=== PATIENT | male | born 1995 | race Caucasian/White ===

== ENCOUNTER 2017-04-27 18:33 | Emergency (ER) | payer SELFPAY ==
[~2017-04-27] VITALS: Ht 165.1 cm; Wt 70.0 kg
[2017-04-27 18:40] VITALS: BP 156/79
--- NOTE | 2017-04-27 19:30 | NUR ---
PT. AMBULATE TO ER BED 4
[2017-04-27] MEDS ORDERED: KETOROLAC 30 MG/ML VIAL IM ONE (19:40)
--- NOTE | 2017-04-27 19:45 | NUR ---
Patient being evaluated by DR. MARS at bedside.
--- NOTE | 2017-04-27 19:45 | NUR ---
21 PATIENT PRESENTS TO ED WITH RT. GROIN PAIN X 2 DAYS. PT STATES PAIN FOR 3 DAYS. DENIES N/V/D; SKIN IS PINK/WARM/DRY; AAOX4 WITH EVEN AND STEADY GAIT; LUNGS CLEAR BL; HR EVEN AND REGULAR; PT DENIES ANY FEVER, CP, SOB, OR COUGH AT THIS TIME; PATIENT STATES PAIN OF 7/10 AT THIS TIME; VSS; PATIENT POSITIONED FOR COMFORT; HOB ELEVATED; BEDRAILS UP X2; BED DOWN. ER MD MADE AWARE OF PT STATUS.
--- NOTE | 2017-04-27 20:25 | NUR ---
Patient discharged with v/s stable. Written and verbal after care instructions given and explained. Patient alert, oriented and verbalized understanding of instructions. Ambulatory with steady gait. All questions addressed prior to discharge. ID band removed. Patient advised to follow up with PMD. Rx of KEFLEX 500 MG, NAPROSYN 500 MG given. Patient educated on indication of medication including possible reaction and side effects. Opportunity to ask questions provided and answered.
[2017-04-27 21:25] VITALS: BP 123/63
--- NOTE | 2017-04-27 21:26 | NUR ---
Note heribertoone in EDM - 04/27/17 at 2127 by MED Patient discharged with v/s stable. Written and verbal after care instructions given and explained. Patient alert, oriented and verbalized understanding of instructions. Ambulatory with steady gait. All questions addressed prior to discharge. ID band removed. Patient advised to follow up with PMD. Rx of KEFLEX 500 MG, NAPROSYN 500 MG given. Patient educated on indication of medication including possible reaction and side effects. Opportunity to ask questions provided and answered.
== END 2017-04-27 20:05 | disposition home or self-care (01) ==
LOC: MED 18:33
DX: L73.8 Other specified follicular disorders (principal); R59.1 Generalized enlarged lymph nodes; Z91.030 Bee allergy status
CPT/HCPCS: 76881; 96372; 99284; J1885; Q0092

== ENCOUNTER 2017-05-02 15:38 | Emergency (ER) | payer SELFPAY ==
[~2017-05-02] VITALS: Ht 165.1 cm; Wt 73.5 kg
[2017-05-02 15:44] VITALS: BP 150/76
--- NOTE | 2017-05-02 19:13 | NUR ---
PATIENT LEFT WITHOUT BEING SEEN BY DR. YEUNG. NO FURTHER CARE PROVIDED FOR PATIENT.
== END 2017-05-02 19:13 | disposition left against medical advice (07) ==
LOC: MED 15:38
DX: R07.89 Other chest pain (principal); Z53.21 Procedure and treatment not carried out due to patient leaving prior to being seen by health care provider

== ENCOUNTER 2018-07-06 23:50 | Emergency (ER) | payer OTHER ==
[~2018-07-06] VITALS: Ht 165.1 cm; Wt 69.4 kg
[2018-07-06 23:58] VITALS: BP 139/76
[2018-07-07] MEDS: IBUPROFEN 800 MG TAB PO ONE (01:05)
[2018-07-07 02:10] VITALS: BP 135/72
== END 2018-07-07 02:11 | disposition home or self-care (01) ==
LOC: MED 23:50
DX: S06.9X1A Unspecified intracranial injury with loss of consciousness of 30 minutes or less, initial encounter (principal); Z88.8 Allergy status to other drugs, medicaments and biological substances; Z02.89 Encounter for other administrative examinations; W22.8XXA Striking against or struck by other objects, initial encounter; Y93.89 Activity, other specified; Y92.89 Other specified places as the place of occurrence of the external cause; Y99.0 Civilian activity done for income or pay
CPT/HCPCS: 70450; 72125; 99282; 99284

== ENCOUNTER 2018-08-20 09:48 | Emergency (ER) | payer MEDICAID, OTHER ==
[~2018-08-20] VITALS: Ht 165.1 cm; Wt 65.8 kg
[2018-08-20 09:58] VITALS: BP 123/68
--- NOTE | 2018-08-20 09:59 | NUR ---
PT AMBULATED TO BED 12
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
--- NOTE | 2018-08-20 11:06 | NUR ---
PT. TAKEN TO CT SCAN VIA WHEELCHAIR AT THIS TIME.
--- NOTE | 2018-08-20 11:54 | NUR ---
PT.R ESTING COMFORTABLY IN BED , RR EVEN AND UNLABORED. FAMILY MEMBER AT BEDSIDE. WILL CONTINUE TO MONITOR.
[2018-08-20 12:26] VITALS: BP 120/66
--- NOTE | 2018-08-20 12:26 | NUR ---
Patient discharged with v/s stable. Written and verbal after care instructions given and explained. Patient verbalized understanding. Ambulatory with steady gait. All questions addressed prior to discharge. Advised to follow up with PMD.
== END 2018-08-20 12:26 | disposition home or self-care (01) ==
LOC: MED 09:48
DX: S09.90XA Unspecified injury of head, initial encounter (principal); R07.81 Pleurodynia; Z88.8 Allergy status to other drugs, medicaments and biological substances; Y04.0XXA Assault by unarmed brawl or fight, initial encounter; Y93.89 Activity, other specified; Y92.89 Other specified places as the place of occurrence of the external cause; Y99.8 Other external cause status
CPT/HCPCS: 70450; 71046; 99284

== ENCOUNTER 2021-04-10 17:46 | Emergency (ER) | payer MEDICAID ==
[~2021-04-10] VITALS: Ht 165.1 cm; Wt 68.0 kg
[2021-04-10 17:51] VITALS: BP 120/65
--- NOTE | 2021-04-10 18:50 | NUR ---
PT AMB TO BED 2
[2021-04-10] MEDS ORDERED: LIDOCAINE MPF 1% 10 MG/ML VIAL INJ ONE (19:00)
--- NOTE | 2021-04-10 19:06 | NUR ---
LAC TRAY SET UP AT BED SIDE. PA NOTIFIED
--- NOTE | 2021-04-10 19:07 | NUR ---
BRAD DON AT BEDSIDE FOR PROCEDURE
--- NOTE | 2021-04-10 19:19 | NUR ---
REPORT GIVEN TO ITZEL REESE, TRANSFER OF CARE AT THIS TIME.
[2021-04-10] MEDS ORDERED: BACITRACIN OINT 500 UNITS/GM PKT TP ONE (19:30)
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
== END 2021-04-10 19:52 | disposition home or self-care (01) ==
LOC: MED 17:46
DX: S61.212A Laceration without foreign body of right middle finger without damage to nail, initial encounter (principal); Z91.018 Allergy to other foods; W25.XXXA Contact with sharp glass, initial encounter; Y93.H9 Activity, other involving exterior property and land maintenance, building and construction; Y92.59 Other trade areas as the place of occurrence of the external cause; Y99.8 Other external cause status
CPT/HCPCS: 12001; 99283; J2001

== ENCOUNTER 2021-04-16 22:40 | Emergency (ER) | payer MEDICAID ==
[~2021-04-16] VITALS: Ht 167.6 cm; Wt 70.8 kg
[2021-04-16 22:52] VITALS: BP 119/63
--- NOTE | 2021-04-16 23:38 | NUR ---
Dr. Jimenez examining patient.
--- NOTE | 2021-04-17 | NUR ---
PT EVAUALTED AND SEEN BY KASEY YEUNG. NO NURSING CARE PROVIDED TO PT.
== END 2021-04-17 | disposition home or self-care (01) ==
LOC: MED 22:40
DX: S61.212D Laceration without foreign body of right middle finger without damage to nail, subsequent encounter (principal); F12.90 Cannabis use, unspecified, uncomplicated; Z91.018 Allergy to other foods; X58.XXXD Exposure to other specified factors, subsequent encounter
CPT/HCPCS: 99281

== ENCOUNTER 2023-03-17 18:52 | Emergency (ER) | payer MEDICAID, OTHER ==
[~2023-03-17] VITALS: Ht 165.1 cm; Wt 72.6 kg
[2023-03-17 18:58] VITALS: BP 134/78
[2023-03-17] MEDS ORDERED: ACET-10509 PO (20:08)
[2023-03-17] MEDS ORDERED: IBUP-2213 PO (20:08)
[2023-03-17 20:26] VITALS: BP 134/78
--- NOTE | 2023-03-17 20:26 | NUR ---
Patient discharged with v/s stable. Written and verbal after care instructions given and explained. Patient alert, oriented and verbalized understanding of instructions. Ambulatory with steady gait. All questions addressed prior to discharge. ID band removed. Patient advised to follow up with PMD. Rx of IBUPROFEN AND TYLENOL given. Patient educated on indication of medication including possible reaction and side effects. Opportunity to ask questions provided and answered.
== END 2023-03-17 20:26 | disposition home or self-care (01) ==
LOC: MED 18:52
DX: S90.31XA Contusion of right foot, initial encounter (principal); Z91.018 Allergy to other foods; Z79.899 Other long term (current) drug therapy; W22.8XXA Striking against or struck by other objects, initial encounter; Y93.89 Activity, other specified; Y92.89 Other specified places as the place of occurrence of the external cause; Y99.8 Other external cause status
CPT/HCPCS: 73630; 99283

== ENCOUNTER 2023-03-20 21:36 | Emergency (ER) | payer OTHER ==
[~2023-03-20] VITALS: Ht 165.1 cm; Wt 72.6 kg
[~2023-03-20 21:36] MED LIST: ACET-10509 PO; IBUP-2213 PO
[2023-03-20 22:05] VITALS: BP 131/79
--- NOTE | 2023-03-20 22:08 | NUR ---
TO LOBBY A/W BED AMBULATORY
--- NOTE | 2023-03-20 22:39 | NUR ---
PT AMBULATES TO CHAIR C
--- NOTE | 2023-03-20 23:22 | NUR ---
PT NOTIFIED RN THAT HE WAS LEAVING. PT LEFT AT THIS TIME.
== END 2023-03-20 23:22 | disposition left against medical advice (07) ==
LOC: MED 21:36
DX: M79.671 Pain in right foot (principal); L53.9 Erythematous condition, unspecified; Z53.21 Procedure and treatment not carried out due to patient leaving prior to being seen by health care provider
CPT/HCPCS: 99281